=== PATIENT | male | born 1955 | race African-American/Black ===

== ENCOUNTER 2020-07-25 15:40 | Emergency (ER) | payer MEDICARE ==
[~2020-07-25] VITALS: Ht 190.5 cm; Wt 97.7 kg
[2020-07-25 16:50] VITALS: BP 135/77
[2020-07-25] MEDS ORDERED: AMOXICILLIN/K CLAV 875/125MG TABLET. PO ONE (18:00)
[2020-07-25] MEDS ORDERED: NEOMY/BACITR/POLYMYXIN OINT PACKET. TP ONE (18:00)
[2020-07-25] MEDS ORDERED: DIPH,PERTUSS(ACELL),TET VAC/PF 0.5 ML SYRINGE. VAX IM ONE (18:00)
[2020-07-25] MEDS ORDERED: AMOX1TAB61 PO (18:19)
--- NOTE | 2020-07-25 18:20 | PHYS DOC ---
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 Patient got bit by unknown dog. 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 [] Musculoskeletal: Denies back pain or joint pain. [] Integument: Reports dog bite to the left elbow Neurologic: Denies headache, focal weakness or sensory changes. [] Psychiatric: Denies depression or anxiety. [] (JOHN DESIR ZANE) Heart Score: C/O Chest Pain: N/A Risk Factors: Risk Factors: DM, Current or recent (<one month) smoker, HTN, HLP, family history of CAD, obesity. Risk Scores: Score 0 - 3: 2.5% MACE over next 6 weeks - Discharge Home Score 4 - 6: 20.3% MACE over next 6 weeks - Admit for Clinical Observation Score 7 - 10: 72.7% MACE over next 6 weeks - Early Invasive Strategies (JOHN DESIR ZANE) C/O Chest Pain: N/A (KEITH CARRERA DO) Current Medications: Current Medications Medications (Trade) Dose Ordered Sig/Valdo Start Time Stop Time Status Last Admin Dose Admin Amoxicillin/ Clavulanate Potassium (Augmentin 875/ 125mg) 1 tab 1X ONCE 07/25/20 18:00 07/25/20 18:01 UNV Diphtheria/ Tetanus/Acell Pertussis (ADACEL TDap SYRINGE) 0.5 ml ONCE ONCE 07/25/20 18:00 07/25/20 18:01 UNV Neomycin/ Polymyxin/ Bacitracin (Triple Antibiotic Ointment) 1 pkt 1X ONCE 07/25/20 18:00 07/25/20 18:01 UNV (JOHN DESIR MASSAGE THERAPY INSTRUCTOR) Physical Exam: PE: Constitutional: Well developed, well nourished, no acute distress, non-toxic appearance. [] Skin: Left elbow lateral aspect with abrasions consistent with a dog bite. Full range of motion to the left elbow and forearm. +2 left radial pulse. Cap refill less than 2 seconds in left fingers. Back: No tenderness, no CVA tenderness. [] Extremities: No tenderness, no cyanosis, no clubbing, ROM intact, no edema. [] Neurologic: Alert and oriented X 3, normal motor function, normal sensory function, no focal deficits noted. [] Psychologic: Affect normal, judgement normal, mood normal. [] (JOHN DESIR APRN) Current Patient Data: Vital Signs: Vital Signs Date Time Temp Pulse Resp B/P (MAP) Pulse Ox O2 Delivery O2 Flow Rate FiO2 07/25/20 16:50 98.4 65 16 135/77 (96) 97 Room Air 98.4 (JOHN DESIR APRN) EKG: EKG: [] (JOHN DESIR APRN) Radiology/Procedures: Radiology/Procedures: [] (JOHN DESIR APRN) Course & Med Decision Making: Course & Med Decision Making Pertinent Labs and Imaging studies reviewed. (See chart for details) This is a 65-year-old male patient with dog bites to the left elbow. Tetanus was updated. Discharged on Augmentin. Wound care instructions and return precautions provided (JOHN DESIR APRN) Course & Med Decision Making The chart was reviewed. I did not see the patient. The MLP evaluated and treated the patient independently. I was available for consult. (KEITH CARRERA DO) Morro Disclaimer: Morro Disclaimer: This electronic medical record was generated, in whole or in part, using a voice recognition dictation system. (JOHN DESIR APRN) Departure Departure Impression: Primary Impression: Dog bite of arm Qualified Codes: S41.152A - Open bite of left upper arm, initial encounter; W54.0XXA - Bitten by dog, initial encounter Disposition: 01 HOME / SELF CARE / HOMELESS Condition: STABLE Referrals: UNKNOWN PCP NAME (PCP) follow up in one week Patient Instructions: Animal Bite, [id number] Additional Instructions: You have dog bites to the left upper extremity. Please clean the areas with soap and water and apply Neosporin to the areas twice a day for seven days. Keep them open to air. Follow-up with your primary care doctor in 1 to 2 weeks. Monitor the area for any signs of infection including but not limited to increased redness, warmth, yellow drainage from the area and return to the ED if they occur Scripts Amoxicillin/Potassium Clav (AUGMENTIN 875-125 TABLET) 1 Each Tablet 1 TAB PO BID for 10 Days, #20 TAB 0 Refills Prov: JOHN DESIR APRN 07/25/20 JOHN DESIR APRN July 25, 2020 18:19 KEITH CARRERA DO July 26, 2020 18:03
== END 2020-07-25 19:20 | disposition home or self-care (01) ==
LOC: ER 15:40
DX: S51.052A Open bite, left elbow, initial encounter (principal); E11.9 Type 2 diabetes mellitus without complications; Z87.891 Personal history of nicotine dependence; W54.0XXA Bitten by dog, initial encounter; Y93.89 Activity, other specified; Y92.89 Other specified places as the place of occurrence of the external cause; Y99.8 Other external cause status
CPT/HCPCS: 90471; 90715; 99283